=== PATIENT | female | born 1970 | race Caucasian/White ===

== ENCOUNTER 2016-10-24 06:18 | Day surgery (SDC) | payer OTHER ==
[~2016-10-24] VITALS: Ht 167.6 cm; Wt 163.3 kg
--- NOTE | ~2016-10-24 | O ---
[facility] [place] [address] OPERATIVE REPORT Name: SULTANA MATA Room #: DEP [facility]..#: [id number] Admission: 10/24/16 Attend Phys: Heather Romero, Discharge: 10/24/16 Date of : 72 Report #: [id number] THIS REPORT FOR: //name// CC: Twan Romero DATE OF SERVICE: 10/24/2016 PREOPERATIVE DIAGNOSIS: Right carpal tunnel syndrome. POSTOPERATIVE DIAGNOSIS: Right carpal tunnel syndrome. PROCEDURE PERFORMED: Right open carpal tunnel release. SURGEON: Heather Romero MD. ANESTHESIA: General laryngeal mask anesthesia. ESTIMATED BLOOD LOSS: Minimal. TOURNIQUET TIME: 11 minutes. COMPLICATIONS: None. CONDITION: Stable. DISPOSITION: To recovery room. INDICATION: The patient is a 45-year-old female with the abovementioned diagnosis. She elected for operative treatment. The risks, benefits, alternatives and complications were discussed that include but not limited to infection, damage to vessels or nerves, incomplete relief of her symptoms. Informed consent was obtained. The correct extremity was identified and labeled by myself, after verbal confirmation of the patient, as well as visual confirmation, signed informed consent. DESCRIPTION OF PROCEDURE: The patient was brought back to the operating room, placed on the operating table in supine position. She received preoperative antibiotics. Tourniquet was placed over padding the patient's right upper extremity. The right upper extremity was then sterilely prepped and draped in the usual fashion. A final time-out was taken to verify correct patient, operative procedure, operative site, all concurred. The arm was elevated, exsanguinated, and the tourniquet inflated. The entire procedure was done with the aid of 3.5 times loupe magnification. Next, a 2 cm incision was made over the carpal tunnel in line with the ring and long finger web space. Dissection was carried down through subcutaneous tissue with tenotomy scissors. The [address] [address] OPERATIVE REPORT Name: SULTANA MATA Room #: DEP [facility] M.R.#: [id number] Admission: 10/24/16 Attend Phys: Heather Romero, Discharge: 10/24/16 Date of : 72 Report #: [id number] fascia and then the very thick transverse carpal ligament was incised in the mid portion with #15 blade. Next, the transverse carpal ligament was then transected proximally from the antebrachial fascia in the forearm all the way through the fat in the palm with tenotomy scissors. The incision was ulnar to the course of the median nerve to decrease postoperative scarring. The nerve was evaluated and looked to be in good condition. The released was deemed complete by direct visualization as well as palpation. The wound was thoroughly irrigated, and skin was closed with 4-0 nylon suture. The wound was infiltrated with approximately 8 mL of 0.25% Marcaine. She was placed in a bulky compressive dressing. All fingers were pink with brisk capillary refill. At the conclusion of the case after deflation of tourniquet, all sponge and needle counts were correct. The patient transferred to postoperative recovery room in stable condition. By: [id number] Heather Romero MD /nt
[~2016-10-24 06:18] MED LIST: ACETAMINOPHEN-1 EAC1 PO; ADVIL LIQUI-GE200 MG PO; ADVIL100 M2 PO; AMANTADINE100 M1 PO; AMITRIPTYLINE H75 M1 PO; ATORVASTATIN CA80 MG PO; AVONEX PEN30 MCG/0.1; BACLOFEN 10MG T10 M1 PO; CLARITIN10 M2 PO; CORGARD PO; ENOXAPARIN40 MG/0.4 SC; FAMOTIDINE 40 M40 M1 OR; FELDENE20 MG PO; FISH OIL 1,0001 EAC5 PO; FLOMAX OR; FLORANEX TABLE1 EACH OR; GLUCOSAMINE CH1 EAC2 PO; GLUCOSAMINE SU500 MG PO; HYDROCODON-ACE1 EAC7 PO; IBUPROFEN 800800 M1 PO; IBUPROFEN200 M2; INDERAL LA 80 M80 M1 PO; LAXATIVE8.6 MG OR; LEVOXYL75 MCG PO; LIORESAL 10 MG10 MG PO; MELATONIN3 MG PO; MELATONIN5 M1 PO; MIDOL CAPLET1 EACH OR; MIDOL CAPLET1 EACH PO; MOBIC15 MG PO; MODAFINIL200 MG PO; MUCINEX600 MG PO; NASONEX17 GM NASAL; NEURONTIN 300M300 M2 PO; NORCO 5-325 TA1 EACH; OMEPRAZOLE 20 M20 M1 PO; OPTIFLEX-C400 MG PO; OXYBUTYNIN 5 MG5 M2 PO; PLEGRIDY P125 MCG/0. SQ; RANITIDINE 150150 MG PO; REQUIP 1 MG TABL1 M1 PO; ROBAXIN 750 MG750 M1; ULTRAM 50MG TAB50 MG; URECHOLINE 25 M25 M1 OR; VITAMIN D 5050000 I1 PO; VITAMIN D2000 UNIT PO; [UNRECOGNIZED DRUG - OTHER] PO
[2016-10-24 10:13] VITALS: BP 152/85
[2016-10-24 12:42] VITALS: BP 152/85
== END 2016-10-24 13:45 | disposition home or self-care (01) ==
LOC: TBA 06:18 → OR 06:18
DX: G56.01 Carpal tunnel syndrome, right upper limb (principal); G35 Multiple sclerosis; Z87.891 Personal history of nicotine dependence; G47.33 Obstructive sleep apnea (adult) (pediatric); K21.9 Gastro-esophageal reflux disease without esophagitis; E78.00 Pure hypercholesterolemia, unspecified
CPT/HCPCS: 50010; 50101; 50386; 56526; 57006; 57091; 62110; 62900; 70005